=== PATIENT | male | born 1995 | race Caucasian/White ===

== ENCOUNTER → 2018-01-21 | Outpatient (CLI) | payer BC ==
--- NOTE | 2018-01-21 18:38 | RADIOLOGY IMAGING REPORT ---
FACILITY: [facility] - [place] PATIENT NAME: Sidney Person : 1995 MR: [id number] V: [id number] EXAM DATE: ORDERING PHYSICIAN: AVA FLORIAN TECHNOLOGIST: Location: [facility] [place] Patient: Sidney Person : 1995 Visit/Account:[id number] Date of Sevice: 01/21/2018 EXAMINATION: CT Head without intravenous contrast HISTORY: Headache. TECHNIQUE: Axial images were obtained from the skull base to the vertex without intravenous contrast . Sagittal and coronal reformatted images are also submitted. One of the following dose optimization techniques was utilized in the performance of this exam: Autom ated exposure control; adjustment of the mA and/or kV according to the patient's size; or use of an i terative reconstruction technique. Specific details can be referenced in the facility's radiology C T exam operational policy. COMPARISON: None available. FINDINGS: Brain volume: Normal. Ventricles: Caval septum pellucidum. Otherwise negative. Acute ischemic changes: None. Hemorrhage: None. Masses / edema: None. Tracey-white: Negative. White matter: Negative. Vessels: Negative. Extra-axial: Negative. Calvarium / skull base: Focal thinning of the right frontoparietal calvarium with overlying linear d ensity in the scalp suggestive of prior trauma or surgery. Otherwise negative. Visualized sinuses / orbits: Rightward nasal septal deviation and spurring. Otherwise negative. IMPRESSION: No acute intracranial abnormality. Report Dictated By: Uday Mendieta MD at 01/21/2018 6:30 PM Report E-Signed By: Uday Mendieta MD at 01/21/2018 6:35 PM WSN:[id number]
== END ==
LOC: CT 17:56
PROVIDERS: ATTEND Nurse Practitioner Family
DX: J34.2 Deviated nasal septum (principal)
CPT/HCPCS: 70450

== ENCOUNTER 2018-03-08 20:00 | Emergency (ER) | payer BC ==
--- NOTE | 2018-03-08 20:25 | ER Report ---
History and Physical Time Seen By MD: 20:19 Hx. of Stated Complaint: PT STARTED TAKING AMLODIPINE AGAIN AFTER HAVING STOPPED FOR A COUPLE OF MONTHS. BP HAS BEEN JUMPING ALL OVER THE PLACE TODAY. PT ALSO REPORTS BEING NAUSEATED, AND PROJECTILE VOMITTED LAST NIGHT. HPI/ROS CHIEF COMPLAINT: concerns about blood pressure HISTORY OF PRESENT ILLNESS: This is a 23 year old male. He has had elevated blood pressure readings today. Moved here from [place], and had been on amlodipine in the past. Had this restarted and has fasting lab orders for the morning and had chest x-ray and EKG done earlier today here at the hospital by outpatient orders. Feeling nauseated at times today, and having blood pressure that is jumping all over the place, highest being about 200/100. No headache or vision changes. No chest pain. No shortness of breath. No abdominal pain. Normal bowels and urination. Allergies: Coded Allergies: cefdinir (Verified Allergy, Intermediate, 03/08/18) Home Meds Reported Medications Topiramate (TOPAMAX) 15 Mg Cap.sprink, PO QDAY 03/08/18 Amlodipine Besylate (AMLODIPINE BESYLATE) 5 Mg Tablet, PO QDAY, TAB 03/08/18 Reviewed Nurses Notes: Yes Hx Substance Use Disorder: No Hx Alcohol Use: Yes (POT) Constitutional Vital Sign - Last 24 Hours 03/08/18 03/08/18 03/08/18 03/08/18 20:06 20:06 20:15 20:19 Temp 99.0 Pulse 81 89 Resp 16 B/P (MAP) 151/116 (128) 151/116 137/85 (102) Pulse Ox 97 95 O2 Delivery Room Air 03/08/18 03/08/18 03/08/18 03/08/18 20:30 20:40 20:45 20:57 Pulse 84 77 Resp 25 16 B/P (MAP) 149/88 (108) 136/90 (105) Pulse Ox 98 96 03/08/18 03/08/18 03/08/18 03/08/18 20:58 20:59 21:09 21:10 Pulse 76 77 Resp 20 18 B/P (MAP) 144/88 (106) 142/100 (114) 136/90 (105) 144/88 (106) Pulse Ox 96 96 O2 Delivery Room Air Room Air 03/08/18 03/08/18 03/08/18 03/08/18 21:11 22:00 22:15 22:20 Pulse 90 73 86 Resp 20 20 20 B/P (MAP) 142/100 (114) 121/77 (92) 125/72 (89) Pulse Ox 99 97 O2 Delivery Room Air 03/08/18 03/08/18 22:30 22:45 Pulse 74 79 Resp 7 28 Pulse Ox 94 Physical Exam General Appearance: The patient is alert, has no immediate need for airway protection and no current signs of toxicity. Eyes: Pupils equal and round no injection. ENT: Normal oral mucosa. Moist mucous membranes. Neck: Neck is supple and non tender. Respiratory: Chest is non tender, lungs are clear to auscultation. Cardiac: regular rate and rhythm Gastrointestinal: Abdomen is soft and non tender, no masses, bowel sounds normal. Musculoskeletal: Extremities have full range of motion. Neuro: Normal sensation and motor. Alert and oriented x3 Skin: No rashes or lesions. DIFFERENTIAL DIAGNOSIS: After history and physical exam differential diagnosis was considered for elevated blood pressure. Medical Decision Making Data Points Result Diagram: 03/08/18203903/08/182039 Laboratory Hematology Test 03/08/18 20:40 03/08/18 20:55 Red Blood Count 5.25 M/uL (4.00-5.60) Mean Corpuscular Volume 87.4 fL (80.0-96.0) Mean Corpuscular Hemoglobin 31.0 pg (26.0-33.0) Mean Corpuscular Hemoglobin Concent 35.5 g/dL (32.0-36.0) Red Cell Distribution Width 13.7 % (11.5-14.5) Mean Platelet Volume 8.1 fL (7.2-11.1) Neutrophils (%) (Auto) 67.4 % (39.4-72.5) Lymphocytes (%) (Auto) 21.8 % (17.6-49.6) Monocytes (%) (Auto) 7.9 % (4.1-12.4) Eosinophils (%) (Auto) 2.4 % (0.4-6.7) Basophils (%) (Auto) 0.5 % (0.3-1.4) Nucleated RBC Relative Count (auto) 0.0 /100WBC Neutrophils # (Auto) 6.5 K/uL (2.0-7.4) Lymphocytes # (Auto) 2.1 K/uL (1.3-3.6) Monocytes # (Auto) 0.8 K/uL (0.3-1.0) Eosinophils # (Auto) 0.2 K/uL (0.0-0.5) Basophils # (Auto) 0.0 K/uL (0.0-0.1) Nucleated RBC Absolute Count (auto) 0.00 K/uL Sodium Level 140 mmol/L (137-145) Potassium Level 3.7 mmol/L (3.5-5.0) Chloride Level 103 mmol/L (98-107) Carbon Dioxide Level 25 mmol/L (22-30) Blood Urea Nitrogen 13 mg/dl (9-21) Creatinine 1.00 mg/dl (0.66-1.25) Glomerular Filtration Rate Calc > 60.0 Random Glucose 101 mg/dl (75-110) Calcium Level 9.5 mg/dl (8.4-10.2) Total Bilirubin 0.7 mg/dl (0.2-1.3) Aspartate Amino Transf (AST/SGOT) 22 U/L (0-35) Alanine Aminotransferase (ALT/SGPT) 20 U/L (0-56) Alkaline Phosphatase 43 U/L (0-126) Troponin I < 0.012 ng/ml Total Protein 7.4 g/dl (6.3-8.2) Albumin 4.4 g/dl (3.5-5.0) Amylase Level 91 U/L (0-110) Lipase 127 U/L (23-300) Urine Color Yellow Urine Clarity Cloudy Urine pH 8.0 pH (4.8-9.5) Urine Specific [place] 1.012 Urine Protein Negative mg/dL (NEGATIVE) Urine Glucose (UA) Negative mg/dL (NEGATIVE) Urine Ketones Negative mg/dL (NEGATIVE) Urine Blood Negative (NEGATIVE) Urine Nitrite Negative (NEGATIVE) Urine Bilirubin Negative (NEGATIVE) Urine Urobilinogen Negative mg/dL (0.2-1.9) Urine Leukocyte Esterase Negative (NEGATIVE) Urine RBC <1 /HPF (0-2/HPF) Urine WBC None /HPF (0-5/HPF) Urine Squamous Epithelial Cells None /LPF (</=FEW) Urine Amorphous Crystals Few /HPF Urine Bacteria Negative /HPF (NONE-FEW) Urine Mucus None /HPF (NONE-FEW) Chemistry Test 03/08/18 20:40 03/08/18 20:55 White Blood Count 9.6 k/uL (4.5-11.0) Red Blood Count 5.25 M/uL (4.00-5.60) Hemoglobin 16.3 g/dL (14.0-18.0) Hematocrit 45.9 % (42.0-52.0) Mean Corpuscular Volume 87.4 fL (80.0-96.0) Mean Corpuscular Hemoglobin 31.0 pg (26.0-33.0) Mean Corpuscular Hemoglobin Concent 35.5 g/dL (32.0-36.0) Red Cell Distribution Width 13.7 % (11.5-14.5) Platelet Count 274 K/uL (150-450) Mean Platelet Volume 8.1 fL (7.2-11.1) Neutrophils (%) (Auto) 67.4 % (39.4-72.5) Lymphocytes (%) (Auto) 21.8 % (17.6-49.6) Monocytes (%) (Auto) 7.9 % (4.1-12.4) Eosinophils (%) (Auto) 2.4 % (0.4-6.7) Basophils (%) (Auto) 0.5 % (0.3-1.4) Nucleated RBC Relative Count (auto) 0.0 /100WBC Neutrophils # (Auto) 6.5 K/uL (2.0-7.4) Lymphocytes # (Auto) 2.1 K/uL (1.3-3.6) Monocytes # (Auto) 0.8 K/uL (0.3-1.0) Eosinophils # (Auto) 0.2 K/uL (0.0-0.5) Basophils # (Auto) 0.0 K/uL (0.0-0.1) Nucleated RBC Absolute Count (auto) 0.00 K/uL Glomerular Filtration Rate Calc > 60.0 Calcium Level 9.5 mg/dl (8.4-10.2) Total Bilirubin 0.7 mg/dl (0.2-1.3) Aspartate Amino Transf (AST/SGOT) 22 U/L (0-35) Alanine Aminotransferase (ALT/SGPT) 20 U/L (0-56) Alkaline Phosphatase 43 U/L (0-126) Troponin I < 0.012 ng/ml Total Protein 7.4 g/dl (6.3-8.2) Albumin 4.4 g/dl (3.5-5.0) Amylase Level 91 U/L (0-110) Lipase 127 U/L (23-300) Urine Color Yellow Urine Clarity Cloudy Urine pH 8.0 pH (4.8-9.5) Urine Specific [place] 1.012 Urine Protein Negative mg/dL (NEGATIVE) Urine Glucose (UA) Negative mg/dL (NEGATIVE) Urine Ketones Negative mg/dL (NEGATIVE) Urine Blood Negative (NEGATIVE) Urine Nitrite Negative (NEGATIVE) Urine Bilirubin Negative (NEGATIVE) Urine Urobilinogen Negative mg/dL (0.2-1.9) Urine Leukocyte Esterase Negative (NEGATIVE) Urine RBC <1 /HPF (0-2/HPF) Urine WBC None /HPF (0-5/HPF) Urine Squamous Epithelial Cells None /LPF (</=FEW) Urine Amorphous Crystals Few /HPF Urine Bacteria Negative /HPF (NONE-FEW) Urine Mucus None /HPF (NONE-FEW) Urinalysis Test 03/08/18 20:55 Urine Color Yellow Urine Clarity Cloudy Urine pH 8.0 pH (4.8-9.5) Urine Specific [place] 1.012 Urine Protein Negative mg/dL (NEGATIVE) Urine Glucose (UA) Negative mg/dL (NEGATIVE) Urine Ketones Negative mg/dL (NEGATIVE) Urine Blood Negative (NEGATIVE) Urine Nitrite Negative (NEGATIVE) Urine Bilirubin Negative (NEGATIVE) Urine Urobilinogen Negative mg/dL (0.2-1.9) Urine Leukocyte Esterase Negative (NEGATIVE) Urine RBC <1 /HPF (0-2/HPF) Urine WBC None /HPF (0-5/HPF) Urine Squamous Epithelial Cells None /LPF (</=FEW) Urine Amorphous Crystals Few /HPF Urine Bacteria Negative /HPF (NONE-FEW) Urine Mucus None /HPF (NONE-FEW) EKG/Imaging EKG Interpretation 12 lead EKG: Rhythm: normal sinus rhythm, rate 77 [place]: normal QRS: normal ST segments: normal ED Course/Re-evaluation Clinical Indication for ER IV: IV Access ED Course Labs are unremarkable. Watching his blood pressures, initial pressures were elevated, with subsequent pressures coming down and improved final pressures. Orthostatic were unremarkable. Reviewed all of this with the patient. He will return home and follow-up with primary care as planned. No changes in medication at this time. Decision to Disposition Date: Mar 08, 2018 Decision to Disposition Time: 22:56 Depart Departure Latest Vital Signs Vital Signs Date Time Temp Pulse Resp B/P (MAP) Pulse Ox O2 Delivery O2 Flow Rate FiO2 03/08/18 22:45 79 28 03/08/18 22:30 94 03/08/18 22:20 125/72 (89) 03/08/18 21:11 Room Air 03/08/18 20:06 99.0 Impression: Primary Impression: Elevated blood pressure reading Condition: Improved Disposition: HOME OR SELF-CARE Patient Instructions: Hypertension (ED) Additional Instructions: No changes in medication at this time. Follow-up with labs and see your regular doctor tomorrow as planned. HERMAN KUNZ MD Mar 08, 2018 20:25
--- NOTE | 2018-03-08 20:46 | EKG ---
FACILITY: PATIENT NAME: JAXON RIGGS : [id number] MR: [id number] V: [id number] EXAM DATE: ORDERING PHYSICIAN: HERMAN KUNZ TECHNOLOGIST: REMEDIOS Franco Reason : ELEVATED BP Blood Pressure : / mmHG Vent. Rate : 077 BPM Atrial Rate : 077 BPM P-R Int : 136 ms QRS Dur : 102 ms QT Int : 360 ms P-R-T Axes : 068 068 042 degrees QTc Int : 407 ms Normal sinus rhythm Normal ECG When compared with ECG of 08-MAR-2018 14:48, Electronic demand pacing is no longer present Confirmed by ASHLI ULRICH ([id number]) on 03/08/2018 10:06:52 PM Referred By: Confirmed By:ASHLI ULRICH
[2018-03-08 20:56] LABS: PLATELET COUNT, AUTOMATED 274 K/uL (150-450)
[2018-03-08] MEDS ORDERED: TOPI15CA18 PO (21:40)
[2018-03-08] MEDS ORDERED: AMLO-111 PO (21:40)
[2018-03-08 22:20] VITALS: BP 125/72
== END 2018-03-08 23:04 | disposition home or self-care (01) ==
LOC: ER 20:33
DX: R03.0 Elevated blood-pressure reading, without diagnosis of hypertension (principal)
CPT/HCPCS: 81001; 82040; 82150; 82247; 82310; 82374; 82435; 82565; 82947; 83690; 84075; 84132; 84155; 84295; 84450; 84460; 84484; 84520; 85025; 93005; 99283

== ENCOUNTER → 2018-03-08 | Outpatient (CLI) | payer BC ==
[~2018-03-08] MED LIST: AMLO-111 PO; TOPI15CA18 PO
--- NOTE | 2018-03-08 15:00 | RADIOLOGY IMAGING REPORT ---
FACILITY: PATIENT NAME: Sidney Person : 1995 MR: [id number] V: [id number] EXAM DATE: ORDERING PHYSICIAN: LUIS A MAHONEY TECHNOLOGIST: Location: [facility] [place] Patient: Sidney Person : 1995 Visit/Account:[id number] Date of Sevice: 03/08/2018 Exam type: CHEST PA AND LAT History: Hypertension Comparison: None. Findings: The lungs are free of acute effusions, infiltrates or edema. The cardiac silhouette is normal in siz e. The trachea is in midline. There is no evidence of a pneumothorax or pneumomediastinum. IMPRESSION: 1. No acute cardiac pulmonary process is seen Report Dictated By: Sabina Gordon MD at 03/08/2018 2:55 PM Report E-Signed By: Sabina Gordon MD at 03/08/2018 2:56 PM WSN:[id number]
--- NOTE | 2018-03-08 15:47 | EKG ---
FACILITY: [facility] PATIENT NAME: JAXON RIGGS : [id number] MR: [id number] V: [id number] EXAM DATE: ORDERING PHYSICIAN: NO OTHER TECHNOLOGIST: ELSY Test Reason : IRREGULAR HEART Blood Pressure : / mmHG Vent. Rate : 101 BPM Atrial Rate : 101 BPM P-R Int : 134 ms QRS Dur : 096 ms QT Int : 340 ms P-R-T Axes : 080 085 039 degrees QTc Int : 440 ms Demand pacemaker, interpretation is based on intrinsic rhythm Sinus tachycardia Biatrial enlargement Abnormal ECG No previous ECGs available Confirmed by AVA SANTANA ([id number]) on 03/08/2018 4:37:03 PM Referred By: DENZEL Confirmed By:AVA SANTANA
== END ==
LOC: RAD 14:20
PROVIDERS: ATTEND Nurse Practitioner Family
DX: R00.8 Other abnormalities of heart beat (principal); I10 Essential (primary) hypertension
CPT/HCPCS: 71046; 93005

== ENCOUNTER → 2018-03-18 | Outpatient (CLI) | payer BC ==
--- NOTE | 2018-03-18 11:19 | EKG ---
FACILITY: [facility] - [place] PATIENT NAME: JAXON RIGGS : [id number] MR: [id number] V: [id number] EXAM DATE: ORDERING PHYSICIAN: RED COLEY TECHNOLOGIST: TOMASZ Franco Reason : HTN Blood Pressure : / mmHG Vent. Rate : 075 BPM Atrial Rate : 075 BPM P-R Int : 140 ms QRS Dur : 102 ms QT Int : 366 ms P-R-T Axes : 066 081 058 degrees QTc Int : 408 ms Normal sinus rhythm with sinus arrhythmia Normal ECG When compared with ECG of 03.08.2018 No significant change was found Confirmed by Jaxon Ware ([id number] on 03/18/2018 8:44:23 PM Referred By: Confirmed By:Jaxon Lira
== END ==
LOC: US 00:24
PROVIDERS: ATTEND Nurse Practitioner Family
DX: I10 Essential (primary) hypertension (principal)
CPT/HCPCS: 93005; 93306